=== PATIENT | male | born 1960 | race Caucasian/White ===

== ENCOUNTER → 2018-04-12 | Outpatient (CLI) | payer OTHER ==
[~2018-04-12] MED LIST: IOPAMIDOL (ISOVUE-M 200) 20 ML VIAL ONE; LIDOCAINE 1% 300 MG/30 ML SDV ONE
[2018-04-12 09:43] LABS: INR 0.96 (0.83-1.16)
== END ==
LOC: FIMAGING 08:41
PROVIDERS: ATTEND Orthopaedic Surgery Orthopaedic Surgery of the Spine
PROC: 3E0R3KZ Introduction of Other Diagnostic Substance into Spinal Canal, Percutaneous Approach (ICD-10-PCS; principal; 2018-04-12)
DX: T84.296A Other mechanical complication of internal fixation device of vertebrae, initial encounter (principal); M99.73 Connective tissue and disc stenosis of intervertebral foramina of lumbar region; M46.96 Unspecified inflammatory spondylopathy, lumbar region; Z98.1 Arthrodesis status
CPT/HCPCS: Q9966

== ENCOUNTER 2018-04-28 10:12 | Inpatient (IN) | payer OTHER ==
[2018-04-28] MEDS ORDERED: LR 1,000 ML IV ONE (10:24)
[2018-04-28] MEDS ORDERED: BUPIVACAINE/EPI 0.5% 30 ML SDV ONE (10:38)
[2018-04-28] MEDS ORDERED: BACITRACIN 50,000 UNITS/10 ML SYR IRR ONE ×2 (10:39→17:47)
[2018-04-28] MEDS ORDERED: VANCOMYCIN 1 GM VIAL ONE (10:39)
[2018-04-28] MEDS ORDERED: MIDAZOLAM 2 MG/2 ML VIAL IVP ONE (11:41)
--- NOTE | 2018-04-28 11:41 | PDANEPAE ---
ANE History of Present Illness T12 to pelvis fusion redo with instrumentation ANE Past Medical History - Cardiovascular History Hx Hypertension: Yes Hx Arrhythmias: No Hx Chest Pain: No Hx Coronary Artery / Peripheral Vascular Disease: No Hx CHF / Valvular Disease: No Hx Palpitations: No - Pulmonary History Hx COPD: No Hx Asthma/Reactive Airway Disease: No Hx Recent Upper Respiratory Infection: No Hx Oxygen in Use at Home: No Hx Sleep Apnea: Yes Sleep Apnea Screening Result - Last Documented: Positive Pulmonary History Comment: SLEEP APNEA POS W/CPAP - Neurologic History Hx Cerebrovascular Accident: No Hx Seizures: No Hx Dementia: No - Endocrine History Endocrine History Comment: HYPOTHYROID - Renal History Hx Renal Disorders: No - Liver History Hx Hepatic Disorders: No - Neurological & Psychiatric Hx Hx Neurological and Psychiatric Disorders: No - Cancer History Hx Cancer: No - Congenital Disorder History Hx Congenital Disorders: No - GI History Hx Gastrointestinal Disorders: No - Other Health History Other Health History: RHEUMATOID ARTHRITIS - Chronic Pain History Chronic Pain: Yes (BACK PAIN, LEG PAIN) - Surgical History Prior Surgeries: L KNEE SCOPE X3. L TKA. L SHOULDER SCOPE. CERVICAL SURG IMPINGEMENT. DISCECTOMY LUMBAR. SEPTOPLASTY. UMB HERNIA. SPINAL FUSION LUMBAR. ING HERNIA ANE Review of Systems Review of systems is: negative Review of Systems: No problems with neck extension, flexion - Exercise capacity METS (RN): 5 METS ANE Patient History - Allergies Allergies/Adverse Reactions: No Known Allergies Allergy (Unverified 04/05/18 14:00) - Home Medications Home medications: home medication list seen and reviewed Home Medications: Aspirin [Aspirin 325 mg (*)] 325 mg PO DAILY 04/05/18 [Last Taken 2 Weeks Ago ~ 04/14/18] Benazepril HCl [Lotensin (*)] 20 mg PO DAILY 04/05/18 [Last Taken 1 Week Ago ~] Diclofenac Sodium [Voltaren-XR] 100 mg PO DAILY 04/05/18 [Last Taken 2 Weeks Ago ~04/14/18] Hydroxychloroquine Sulfate [Plaquenil 200 mg (*)] 200 mg PO DAILY 04/05/18 [ Last Taken 2 Weeks Ago ~04/14/18] Levothyroxine [Synthroid 50 mcg (*)] 50 mcg PO DAILY 04/05/18 [Last Taken 07:00] Niacin (Inositol Niacinate) [Niacin Flush Free 750 mg Cap] 750 mg PO HS [Last Taken 2 Weeks Ago ~04/14/18] Testosterone Cypionate 200 mg IM MASON 04/05/18 [Last Taken 04/26/18] Valsartan/Hydrochlorothiazide [Diovan Hct 160-25 mg Tablet] 1 each PO DAILY 08/18 [Last Taken 04/27/18] Ascorbic Acid [Vitamin C 500 mg (*)] 500 mg PO DAILY 04/11/18 [Last Taken 2 Weeks Ago ~04/14/18] Atorvastatin Calcium 80 mg PO HS 04/11/18 [Last Taken 04/27/18] Cholecalciferol (Vitamin D3) [Vitamin D3] 5,000 unit PO DAILY 04/11/18 [Last Taken 2 Weeks Ago ~04/14/18] Folic Acid [Folic Acid 1 MG (*)] 1 mg PO DAILY 04/11/18 [Last Taken 2 Weeks Ago ~04/14/18] Gabapentin [Neurontin 300 MG (*)] 300 mg PO BID 04/11/18 [Last Taken Unknown] Herbals/Supplements -Info Only 1 ea PO DAILY 04/11/18 [Last Taken 1 Week Ago ~] Magnesium Oxide [Magnesium Oxide 400 mg (*)] 400 mg PO DAILY 04/11/18 [Last Taken Unknown] Methotrexate Sodium [Rheumatrex] 20 mg PO TH 04/11/18 [Last Taken 2 Weeks Ago ~ 04/14/18] Gabapentin [Neurontin 300 MG (*)] 300 mg PO TID 04/28/18 [Last Taken 04/28/18 07 :00] - NPO status NPO Since - Liquids (Date): 04/28/18 NPO Since - Liquids (Time): 09:00 NPO Since - Solids (Date): 04/27/18 NPO Since - Solids (Time): 23:15 - Anes Hx Anes Hx: no prior problems - Smoking Hx Smoking Status: Never smoked - Family Anes Hx Family Anes Hx: none Family Hx Anesthesia Complications: NEG ANE Labs/Vital Signs - Vital Signs Vital Signs: reviewed preoperatively; see RN documention for details Blood Pressure: 164/118 Heart Rate: 73 Respiratory Rate: 18 O2 Sat (%): 96 Height: 180.34 cm Weight: 97.522 kg ANE Physical Exam - Airway Neck exam: FROM Mallampati Score: Class 2 Mouth exam: normal dental/mouth exam - Pulmonary Pulmonary: no respiratory distress - Cardiovascular Cardiovascular: regular rate and rhythym - ASA Status ASA Status: III ANE Anesthesia Plan Anesthesia Plan: general endotracheal anesthesia Lines/Monitors: arterial line
[2018-04-28] MEDS ORDERED: CITRATE DEXTROSE SOLN 500 ML BAG ONE ×3 (12:09→16:55)
[2018-04-28] MEDS ORDERED: ceFAZolin 2 GM/DEXTROSE 100 ML IV ONE (12:12)
[2018-04-28] MEDS ORDERED: TRANEXAMIC ACID 1,000 MG in NS 100 ML IV ONE (12:12)
--- NOTE | 2018-04-28 12:14 | PDHPUP ---
History & Physical Update H&P update statement: This history and physical update is based on an assessment of the patient which was completed after admission or registration (within 24 hours), but prior to the surgery/procedure. H&P update: H&P reviewed & patient examined, no change in patient's condition since H&P completed
[2018-04-28] MEDS ORDERED: DEXAMETHASONE 4 MG/ML VIAL ONE (12:15)
[2018-04-28] MEDS ORDERED: PROPOFOL/EMULSION 500 MG/50 ML BOTTLE IV ONE ×3 (12:15→19:25)
[2018-04-28] MEDS ORDERED: REMIFENTANIL HCL 1 MG VIAL ONE ×3 (12:15→19:24)
[2018-04-28] MEDS ORDERED: ROCURONIUM 50 MG/5 ML VIAL ONE (12:15)
[2018-04-28] MEDS ORDERED: fentaNYL 100 MCG/2 ML INJ ONE ×2 (12:15→20:47)
[2018-04-28] MEDS ORDERED: ONDANSETRON 4 MG/2 ML VIAL ONE (12:15)
[2018-04-28] MEDS ORDERED: LIDOCAINE 2% 100 MG/5 ML SYR ONE (12:15)
[2018-04-28] MEDS ORDERED: HYDROmorphONE/DILAUDID 2 MG/ML INJ ONE ×2 (12:15→18:20)
[2018-04-28] MEDS ORDERED: PROPOFOL 200 MG/20 ML VIAL ONE (12:15)
--- NOTE | 2018-04-28 12:22 | PDGENHP ---
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
[2018-04-28] MEDS ORDERED: TRANEXAMIC ACID 1,000 MG/10 ML VIAL ONE ×2 (14:26→14:51)
[2018-04-28] MEDS ORDERED: DEXAMETHASONE 4 MG/ML VIAL IVP PRN (17:19)
[2018-04-28] MEDS ORDERED: PROMETHAZINE HCL 25 MG/ML INJ IVP PRN (17:19)
[2018-04-28] MEDS ORDERED: DIAZEPAM 5 MG/ML 1 ML SYR IVP PRN (17:19)
[2018-04-28] MEDS ORDERED: MEPERIDINE 25 MG/0.5 ML AMP IVP PRN (17:19)
[2018-04-28] MEDS ORDERED: HYDROmorphONE/DILAUDID 2 MG/ML INJ IVP PRN (17:19)
[2018-04-28] MEDS ORDERED: NALOXONE HCL 0.4 MG/ML INJ IVP PRN ×2 (17:19→21:33)
[2018-04-28] MEDS ORDERED: HYDROCODONE/APAP 5/325 TAB PO PRN (17:19)
[2018-04-28] MEDS ORDERED: oxyCODONE IR 5 MG TAB PO PRN (17:19)
[2018-04-28] MEDS ORDERED: ACETAMINOPHEN 500 MG TAB PO PRN (17:19)
[2018-04-28] MEDS ORDERED: ONDANSETRON 4 MG/2 ML VIAL IVP PRN ×2 (17:19→20:35)
[2018-04-28] MEDS ORDERED: LABETALOL HCL 5 MG/ML 20 ML MDV IVP PRN (17:19)
--- NOTE | 2018-04-28 17:21 | POSTANESTH ---
Post Anesthetic Evaluation Cardiovascular Status: Similar to Pre-Op Cond Respiratory Status: Similar to Pre-op Cond. Level of Consciousness/Mental Status: Can Participate in Eval, Mildly Sleepy, Arousable Pain Control: Adequate, Prn Tx Ordered Nausea/Vomiting Control: Adequate, Prn Tx Ordered Complications Possibly Related to Anesthesia: None Noted
[2018-04-28] MEDS ORDERED: LACTULOSE 20 GM/30 ML UDCUP PO PRN (20:35)
[2018-04-28] MEDS ORDERED: POLYETHYLENE GLYCOL 3350 17 GM PKT PO PRN (20:35)
[2018-04-28] MEDS ORDERED: BISACODYL 10 MG SUPP PR PRN (20:35)
[2018-04-28] MEDS ORDERED: diphenhydrAMINE 25 MG CAP PO PRN (20:35)
[2018-04-28] MEDS ORDERED: ONDANSETRON DISINTEGRATING 4 MG TAB PO PRN (20:35)
[2018-04-28] MEDS ORDERED: MAGNESIUM HYDROXIDE 30 ML UDCUP PO PRN (20:35)
[2018-04-28] MEDS ORDERED: LABETALOL HCL 5 MG/ML 20 ML MDV ONE (20:36)
[2018-04-28] MEDS: fentaNYL 100 MCG/2 ML INJ IVP PRN ×3 (20:48→21:45)
[2018-04-28] MEDS ORDERED: morphINE PCA 30 MG/30 ML PCA IV PRN (21:33)
--- NOTE | 2018-04-28 22:52 | SUROPNOTE ---
[facility] Operative Report - Surgery Date: 04/28/18 Pre-operative Diagnosis: L1-S1 pseudarthrosis, painful nonunion, failed instrumentation Post-operative Diagnosis: Same Procedure: L1-S1 removal of instrumentation Inspection of fusion mass T12-S2 fusion with instrumentation L2, L3 complete laminectomy Right L2/3 complete facetectomy and L3 transforaminal decompression Use of intra-operative fluoroscopy Use of intra-operative computer-aided navigation Use of intra-operative neuromonitoring, including EMG, MEP, and SSEP modalities Surgeon: Cm Saenz MD Assembler Bicycle: None Anesthesia: General endotracheal anesthesia Findings: As expected, loosened and failed instrumentation, multiple loosened caps, broken left L3 screw. Estimated Blood Loss: 900mL Drains: hemovac x 1 Specimens: instrumentation Complications: None Condition: Transferred to PACU in stable condition. Implants: None Indications: This patient has been diagnosed with symptomatic instrumentation and pseudarthrosis with spinal stenosis and left leg weakness. I have explained all options of treatment for the patient, and the patient has elected to proceed with operative management. I have explained all risks, benefits, and alternatives of the proposed procedure. The risks that we have discussed include , blindness, nerve damage, recurrent disc herniation, infection, dural tear, failure of surgery to alleviate pre-operative symptoms, instability , and possible need for further operation. In addition to the aforementioned procedure, I also discussed with the patient that other procedures may be indicated during the course of surgery. The patient expressed understanding of this. Pre-operative: The proposed incision site was marked in the pre-operative holding area by me. The patient was then taken to the operating room in stable condition. Following smooth induction of general anesthesia, the patient was positioned prone on a Mitul table with all down surfaces well-padded. The patient was then prepped and draped in the usual sterile fashion. Pre-operative antibiotics and tranexamic acid were administered within one hour of the incision. A surgical timeout was performed, and all parties involved in the procedure were in agreement on the correct patient, location, and procedure to be performed. Level identification: The proposed levels were identified using prior incisions the skin was marked for the proposed incision. A midline approach was taken from T12 to S2. Electrocautery was used to coagulate any bleeding vessels identified above the level of the fascia. Instrumentation was readily visible, and a spinal timeout confirmed the levels. Removal of instrumentation: Removal of instrumentation was then performed. The prior instrumentation was all removed. There were no signed of infx, and abx were then given. Of note, this process alone took about two hours to carefully remove broken instrumentation and ensure proper removal. Inspection of fusion mass: At this time, the fusion was inspected and noted to be unfused throughout the lumbar spine. Navigation: At this point, the patient was covered, and an intra-operative CT scan was performed. Computer-aided stereotactic navigation would be used throughout all of the instrumentation portion of the case. Pedicle screw placement: Using a freehand technique with fluoroscopic assistance, a standard entry point was selected based on bony landmarks. A pilot highway patrol hole was created with a high speed malini. The pedicle tract was then cannulated using a curved Lenke probe. A ball-tipped feeler was then passed through the cannulated tract to ensure that there was no breach on all sides: superior, inferior, medial, lateral, and ventral. A tap was then used up to a size that was 1mm below the final screw size based on pre-operative templating. A ball-tipped feeler was used again in a similar fashion to ensure a safe trajectory without breach. The tract length was then measured and recorded for future pedicle screw selection and placement. The pedicle tract jesus then injected with a small amount of microfibrillar collagen agent to ensure hemostasis. This sequence was performed for all levels that would be included in the fusion. An appropriately-sized screw was placed at each level and confirmed fluoroscopically. All screws were then stimulated. Each screw was stimulated and potentials were all above 20 milliAmps. This process was repeated in a similar fashion on the contralateral side. CT imaging: At this point, a second CT scan was performed to ensure that the proper placement of all screws. Decompression: All paraspinal muscles were dissected sub-periostally from the spinous processes and laminae. The dissection was then carried out to include the extent of decompression that was determined before surgery, with care being taken to preserve facet capsules that would not be included in the final fusion. The lateral pars was identified for all levels to be included in the proposed decompression. Using a combination of rongeur, malini, and Kerrison rongeurs, the spinous processes and laminae were removed at all levels to the subarticular lateral recess. Care was taken to leave a minimum of 8mm of bone from the lateral border of the pars at each decompressed level. The ligamentum flavum was resected at all levels. Using a Kerrison rongeur angled back, additional ligamentum flavum was removed from under the caudal aspect of the cephalad-most level, and from under the cephalad aspect of the caudal-most level. Additional care was taken to adequately decompress the lateral recess at all levels. At this time, a ball probe was used to probe all foraminae at the affected levels. Where necessary, a small Kerrison rongeur was used to decompress remaining bone and soft tissue so that all nerve roots would traverse freely through the foraminae. In total, the entirety of L2 and L3 were removed, The complete left L3 foramen was decompressed through a transforaminal approach through the L2/3 facet. Bone graft: All bony surfaces were decorticated using a high speed malini, including all facets to be fused. All local autograft bone was cleaned of soft tissue and morselized. All remaining allograft and autograft bone was placed in the facets being fused and lateral to the instrumentation in the posterolateral gutters. BMP, allograft, and autograft were used as planned in the posterolateral gutters. Alexandru and set screw placement: An appropriately-sized alexandru was then placed into the pedicle screw heads, with ample alexandru extending from either end. Set screws were then placed into all pedicle screws over the rods, and tensioned using a torque-limited screwdriver. Closure: The surgical field was then copiously irrigated with sterile saline. Vancomycin powder was then applied to the surgical field. #1 braided and absorbable interrupted sutures were used to repair the fascia. Then 2-0 interrupted sutures were used to repair the dermal layer, and a separate 3-0 monofilament suture was used to repair the subcutaneous layer in a running fashion. All sutures used were absorbable. Topical adhesive was then applied to the skin and allowed to dry. A sterile island dressing was applied over the surgical incision. A surgical count was performed before initiation of closure and following the procedure, and all were correct. I was present for the entire procedure. Neuromonitoring: SSEP, MEP and EMG were used throughout the case from incision until the beginning of closure. There were no significant changes throughout the case, and SSEP signals were at their pre-surgical baseline levels before surgical closure was initiated. Recovery: The patient was extubated uneventfully in the operating room. The patient was taken to the recovery room in stable condition. Sequential compression devices for VTE prophylaxis were applied to the patients lower extremities, and were ordered to be used while the patient was non-ambulatory. Chemical VTE prophylaxis was considered to be contraindicated for this patient because of the risk of bleeding near the epidural space. 22 modifier: This case took a total of over 7 hours to complete. The additional procedure to remove prior broken instrumentation added an additional 2 hours alone. The patients body habitus and BMI over 30 also increased the technical difficulty of perform this case safely. Cm Saenz MD
[2018-04-28] MEDS: METHOCARBAMOL 750 MG TAB PO PRN (23:00)
[2018-04-28] MEDS: ATORVASTATIN CALCIUM 40 MG TAB PO SCH (23:00)
[2018-04-28] MEDS: FAMOTIDINE 20 MG TAB PO SCH (23:01)
[2018-04-28] MEDS: oxyCODONE IR 5 MG TAB PO PRN (23:01)
[2018-04-28] MEDS: SENNOSIDES/DOCUSATE SODIUM TAB PO SCH (23:01)
[2018-04-28] MEDS: ACETAMINOPHEN 500 MG TAB PO SCH (23:01)
[2018-04-29] MEDS: oxyCODONE IR 5 MG TAB PO PRN ×5 (03:59→20:54)
[2018-04-29] MEDS: METHOCARBAMOL 750 MG TAB PO PRN ×3 (06:19→20:13)
[2018-04-29] MEDS: ACETAMINOPHEN 500 MG TAB PO SCH ×3 (06:19→22:12)
--- NOTE | 2018-04-29 08:15 | PDMN ---
Medical Necessity Medical necessity: Pt meets inpt criteria per MD order and [facility] [place] [facility] Lumbar Fusion, 3 days. 58 y/o w/symptomatic instrumentation and pseudoarthrosis w/ spinal stenosis and L leg weakness, admitted for spinal surg: L1-S1 removal of instrumentation, T12-S2 fusion w/instrumentation, L2/L3 complete lami, R L2/3 complete facetectomy and L3 transforaminal decompression, and post-op care.
[2018-04-29] MEDS: FAMOTIDINE 20 MG TAB PO SCH ×2 (08:36→20:14)
[2018-04-29] MEDS: SENNOSIDES/DOCUSATE SODIUM TAB PO SCH ×2 (08:36→20:13)
[2018-04-29] MEDS: LEVOTHYROXINE 50 MCG TAB PO SCH (08:36)
[2018-04-29] MEDS ORDERED: BENAZEPRIL HCL 20 MG TAB PO SCH (09:00)
[2018-04-29] MEDS ORDERED: VALSARTAN/HCTZ 80-12.5MG TAB PO SCH (09:00)
[2018-04-29] MEDS: HYDROCHLOROTHIAZIDE PO SCH (12:47)
[2018-04-29] MEDS: VALSARTAN PO SCH (12:47)
[2018-04-29] MEDS: BENAZEPRIL HCL 20 MG TAB PO SCH (12:49)
--- NOTE | 2018-04-29 14:28 | ASMTCMCOM ---
CM Note CM Note Notes: Pt had planned spinal surgery, resides with spouse. OT rec home, PT rec HHC. CM to follow pt progress and arrange HHC for pt if MD recommends it. Date Signed: 04/29/2018 02:27 PM Electronically Signed By:MARY Ayers
--- NOTE | 2018-04-29 17:14 | GPROG ---
I saw and evaluated the patient earlier this morning and have been in contact with his nurse loc boudreaux his care. Overall, he is doing quite well. His pain is actually controlled on an oral regimen brendan ne. He has not required IV pain medication. He has been up with physical therapy, but has been in c onsiderable pain, appropriate lumbar spine pain. He reports improvement of his right thigh symptoms but has some persistent left thigh symptoms. He has a little bit of left tibialis anterior weakness, but it is the same as when compared to before his operation. IMPRESSION: Postoperative day 1 status post T12 to pelvis revision decompression and fusion with ins trumentation. ASSESSMENT AND PLAN: Moving forward. The patient looks great. His vitals are fine. His pain is we ll controlled. I am fine to discharge him whenever he meets gross criteria. I will continue to see him on a daily basis. /[id number]/MODL
[2018-04-29] MEDS: ATORVASTATIN CALCIUM 40 MG TAB PO SCH (20:13)
[2018-04-30] MEDS: METHOCARBAMOL 750 MG TAB PO PRN ×3 (03:52→21:39)
[2018-04-30] MEDS: oxyCODONE IR 5 MG TAB PO PRN ×4 (03:52→18:26)
[2018-04-30] MEDS: ACETAMINOPHEN 500 MG TAB PO SCH ×3 (05:29→21:39)
[2018-04-30] MEDS: FAMOTIDINE 20 MG TAB PO SCH ×2 (08:15→21:39)
[2018-04-30] MEDS: SENNOSIDES/DOCUSATE SODIUM TAB PO SCH ×2 (08:15→21:39)
[2018-04-30] MEDS: LEVOTHYROXINE 50 MCG TAB PO SCH (08:15)
[2018-04-30] MEDS: VALSARTAN PO SCH (08:18)
[2018-04-30] MEDS: HYDROCHLOROTHIAZIDE PO SCH (08:18)
--- NOTE | 2018-04-30 09:42 | GPROG ---
I saw and evaluated the patient this morning during my morning rounds. Overall, he is doing quite we ll given the operation that he had. His pain is well controlled on an oral regimen. He has no unusu al symptoms. He does report good relief of bilateral thigh pain, more so on the right side, but he d oes have some improvement in the left thigh as well. He does have some pain in the lateral aspect of his calf. He has a little bit of left tibialis anterior and EHL weakness, but this is old. Drain i s in place and left in place. IMPRESSION: Postoperative day 2, status post T12 to pelvis revision, fusion and decompression with i nstrumentation. ASSESSMENT/PLAN: The patient had an over 7-hour surgery and is obviously doing quite well given how much he has been able to walk. Will get some x-rays later today. Will probably hold onto him until tomorrow and then consider discharge. Otherwise, all questions are answered at this time for the ermelinda lewis and his . Please do not hesitate to call me if any issues arise for this patient. Will anticipate letting him go home sometime tomorrow. /[id number]/MODL
[2018-04-30] MEDS: BENAZEPRIL HCL 20 MG TAB PO SCH (10:22)
--- NOTE | 2018-04-30 18:00 | GPROG ---
I have seen and evaluated the x-rays for the patient. They represent good instrumentation. There is some rotation and it is difficult to assess the T12 pedicle screws, but grossly everything appears t o be well positioned. /[id number]/MODL
[2018-04-30] MEDS ORDERED: BENAZEPRIL HCL 20 MG TAB PO SCH (21:00)
[2018-04-30] MEDS: ATORVASTATIN CALCIUM 40 MG TAB PO SCH (21:39)
[2018-05-01] MEDS: oxyCODONE IR 5 MG TAB PO PRN ×2 (00:17→10:19)
[2018-05-01] MEDS: METHOCARBAMOL 750 MG TAB PO PRN ×2 (05:31→08:37)
[2018-05-01] MEDS: ACETAMINOPHEN 500 MG TAB PO SCH (05:31)
[2018-05-01 07:44] VITALS: BP 136/73
--- NOTE | 2018-05-01 08:13 | GDS ---
The patient underwent an uneventful T12 to pelvis removal of instrumentation and decompression with r evision fusion on 04/28/2018. The surgery, itself, lasted over 7 hours and was quite involved, how er, was without complication. Following surgery, the patient progressed well with physical therapy. He was able to ambulate just f ine. Of note, cultures were sent during the operation, which were noted to be grossly negative. Cul tures were sent as there was some concern that the nonunion could have been infection related. I angelica l follow these as the patient is discharged. As he goes home, the patient is not to bend, lift, or twist about the spine and is to use the back br yfn whenever he is up for any prolonged period of time. Of note, we did use brad on the incision, so I have asked the patient not to shower for a couple of weeks and he will not bathe for a total of 6 weeks. He has been prescribed narcotic pain medicine, as well as a muscle relaxer, these prescrip tions he has at home already. The patient has my cell phone and is welcome to call me if any issues arise, otherwise I will plan to see the patient back in 2 weeks' time in my office. /[id number]/MODL
--- NOTE | 2018-05-01 08:13 | GPROG ---
DATE OF SERVICE: 05/01/2018 Patient offers no unusual complaints this morning. He notes that his thighs feel markedly better yisel n they did before the operation. Of note, he does state that his penis was numb before any of his op erations and that sensation is still absent, but otherwise, he is doing quite well. He has done giorgi ral laps with physical therapy. X-rays were taken yesterday, which were reviewed by me. PHYSICAL EXAMINATION: His dressing is somewhat saturated, but really seems to be related to his swea ting more than anything else. He has no gross sensory, motor, or vascular deficits, and again, his t highs seem to be much more sensate today. IMAGING: Reviewed, includes x-rays, which demonstrate well-positioned instrumentation. There is a l ittle better rotation., so it is difficult to assess the T12 pedicle screws, but overall they do appe ar to be well positioned. He does have a persistent end-cap at the top of his instrumentation, which is going to be fine left there, and he does have a persistent S1 screw, which proved difficult to re move during the operation. IMPRESSION: Postoperative day 3 status post T12 to pelvis removal of instrumentation, revision fusio n, and revision decompression. ASSESSMENT/PLAN: The patient has done extremely well from this operation. He is only on oral pain m edication at this point and has walked quite well despite the large operation. He shows no signs of requiring lab values or transfusion at this point. We will let the patient go home today. We will change his dressings and we will remove his drain. Enzo mukherjee will follow up with me in the office in 2 weeks' time from his surgery. /[id number]/MODL
[2018-05-01] MEDS: SENNOSIDES/DOCUSATE SODIUM TAB PO SCH (08:37)
[2018-05-01] MEDS: LEVOTHYROXINE 50 MCG TAB PO SCH (08:37)
[2018-05-01] MEDS: FAMOTIDINE 20 MG TAB PO SCH (08:37)
[2018-05-01] MEDS: HYDROCHLOROTHIAZIDE PO SCH (08:38)
[2018-05-01] MEDS: VALSARTAN PO SCH (08:38)
--- NOTE | 2018-05-01 12:25 | ASMTLACE ---
STEPHEN Length of stay for Answers: 3 days current admission Acuity / Level of Answers: Yes Care: Did the patient have an inpatient admission? # of Emergency department Answers: 0 visits in the last 6 months Score: 6 Date Signed: 05/01/2018 12:25 PM Electronically Signed By:Nimco Redding RN
--- NOTE | 2018-05-01 12:27 | ASMTDCNOTE ---
Case Management Discharge Discharge Order Complete? Answers: Yes Patient to Obtain Answers: via Family Medications Transportation Arranged Answers: Family/Friends Case Management Transport Answers: No Form Complete Family Notified Answers: Yes Discharge Comments Notes: Medically cleared for discharge to home with outpatient therapy. Date Signed: 05/01/2018 12:26 PM Electronically Signed By:Nimco Redding RN
== END 2018-05-01 12:22 | disposition home or self-care (01) | DRG 454 ==
LOC: F3N 10:12
PROVIDERS: ADMIT Orthopaedic Surgery Orthopaedic Surgery of the Spine; ATTEND Orthopaedic Surgery Orthopaedic Surgery of the Spine
DX: M96.0 Pseudarthrosis after fusion or arthrodesis (principal); T84.84XA Pain due to internal orthopedic prosthetic devices, implants and grafts, initial encounter; T84.038A Mechanical loosening of other internal prosthetic joint, initial encounter; I10 Essential (primary) hypertension; G47.30 Sleep apnea, unspecified; E03.9 Hypothyroidism, unspecified; M06.9 Rheumatoid arthritis, unspecified
CPT/HCPCS: 97110-GP; 97116-GP; 97161-GP; 97165-GO; 97530-GO; 97530-GP; 97535-GO; C1713; J0690; J1100; J1170; J2001; J2250; J2270; J2405; J2704; J3010; J3370

== ENCOUNTER 2018-05-08 08:26 | Inpatient (IN) | payer OTHER ==
--- NOTE | 2018-05-08 08:32 | EDPHY ---
ED Progress Note Narrative: Patient was sent to the ED for direct admission to the OR. He was not evaluated by the emergency room physician.
[2018-05-08] MEDS ORDERED: CEFAZOLIN 2 GM/DEXTROSE/100 ML BAG IV ONE (11:01)
[2018-05-08] MEDS ORDERED: BUPIVACAINE/EPI 0.5% 30 ML SDV ONE (11:02)
[2018-05-08] MEDS ORDERED: VANCOMYCIN 1 GM VIAL ONE (11:02)
[2018-05-08] MEDS ORDERED: BACITRACIN 50,000 UNITS/10 ML SYR IRR ONE (11:03)
--- NOTE | 2018-05-08 11:33 | GHP ---
DATE OF ADMISSION: 05/08/2018 HISTORY OF PRESENT ILLNESS: The patient is a very pleasant 58-year-old gentleman who underwent a wyatt or lumbar fusion, which was noted to fail with pseudarthrosis of multiple levels. About 1 week ago, he underwent a revision fusion and decompression, which at that time was without complication. Over the last couple of days, he has noticed some increasing drainage in the lumbar spine. He has not had any fevers or chills. PHYSICAL EXAMINATION: There is drainage from the lumbar spine incision. There appears to be a small fissure in the middle of the incision. ASSESSMENT/PLAN: I have talked to the patient about what to do next. I recommended an irrigation an d debridement at least to the fascia and probably below. We will remove the brad, wash it out, an d we will apply antibiotics will use iodine to replicate any infection. While there, will also take some cultures to tailor the antibiotics appropriately. We will also do a revision wound closure, jordan autumn a deep drain, and use an incisional VAC over the incision. Patient expressed understanding. We will admit him to the hospital and undergo the procedure later today. /[id number]/MODL
--- NOTE | 2018-05-08 11:57 | PDANEPAE ---
ANE Past Medical History - Cardiovascular History Hx Hypertension: Yes Hx Arrhythmias: No Hx Chest Pain: No Hx Coronary Artery / Peripheral Vascular Disease: No Hx CHF / Valvular Disease: No Hx Palpitations: No - Pulmonary History Hx COPD: No Hx Asthma/Reactive Airway Disease: No Hx Recent Upper Respiratory Infection: No Hx Oxygen in Use at Home: No Hx Sleep Apnea: Yes Pulmonary History Comment: SLEEP APNEA POS W/CPAP - Neurologic History Hx Cerebrovascular Accident: No Hx Seizures: No Hx Dementia: No - Endocrine History Endocrine History Comment: HYPOTHYROID - Renal History Hx Renal Disorders: No - Liver History Hx Hepatic Disorders: No - Neurological & Psychiatric Hx Hx Neurological and Psychiatric Disorders: No - Cancer History Hx Cancer: No - Congenital Disorder History Hx Congenital Disorders: No - GI History Hx Gastrointestinal Disorders: No - Other Health History Other Health History: RHEUMATOID ARTHRITIS - Chronic Pain History Chronic Pain: Yes (BACK PAIN, LEG PAIN) - Surgical History Prior Surgeries: L KNEE SCOPE X3. L TKA. L SHOULDER SCOPE. CERVICAL SURG IMPINGEMENT. DISCECTOMY LUMBAR. SEPTOPLASTY. UMB HERNIA. SPINAL FUSION LUMBAR. ING HERNIA ANE Review of Systems Review of Systems: ANE Patient History - Allergies Allergies/Adverse Reactions: No Known Allergies Allergy (Verified 05/08/18 08:26) - Home Medications Home Medications: Aspirin [Aspirin 325 mg (*)] 325 mg PO DAILY 04/05/18 [Last Taken 2 Weeks Ago ~ 04/14/18] Benazepril HCl [Lotensin (*)] 20 mg PO DAILY 04/05/18 [Last Taken 1 Week Ago ~] Levothyroxine [Synthroid 50 mcg (*)] 50 mcg PO DAILY 04/05/18 [Last Taken 07:00] Ascorbic Acid [Vitamin C 500 mg (*)] 500 mg PO DAILY 04/11/18 [Last Taken 2 Weeks Ago ~04/14/18] Atorvastatin Calcium 80 mg PO HS 04/11/18 [Last Taken 04/27/18] Cholecalciferol (Vitamin D3) [Vitamin D3] 5,000 unit PO DAILY 04/11/18 [Last Taken 2 Weeks Ago ~04/14/18] Folic Acid [Folic Acid 1 MG (*)] 1 mg PO DAILY 04/11/18 [Last Taken 2 Weeks Ago ~04/14/18] Valsartan/Hydrochlorothiazide [Valsartan-Hctz 160-12.5 mg Tab] 1 tab PO DAILY [Last Taken Unknown] - NPO status NPO Since - Liquids (Date): 05/07/18 NPO Since - Liquids (Time): 23:30 NPO Since - Solids (Date): 05/07/18 NPO Since - Solids (Time): 23:30 - Smoking Hx Smoking Status: Never smoked - Family Anes Hx Family Hx Anesthesia Complications: NEG ANE Labs/Vital Signs - Vital Signs Blood Pressure: 128/70 Heart Rate: 74 Respiratory Rate: 12 O2 Sat (%): 93 Height: 180.34 cm Weight: 94.801 kg ANE Physical Exam - Airway Mallampati Score: Class 2 - ASA Status ASA Status: II, E ANE Anesthesia Plan Anesthesia Plan: general endotracheal anesthesia
[2018-05-08] MEDS ORDERED: MIDAZOLAM 2 MG/2 ML VIAL ONE (12:08)
[2018-05-08] MEDS ORDERED: ONDANSETRON 4 MG/2 ML VIAL ONE (12:11)
[2018-05-08] MEDS ORDERED: ROCURONIUM 50 MG/5 ML VIAL ONE (12:11)
[2018-05-08] MEDS ORDERED: fentaNYL 100 MCG/2 ML INJ ONE ×4 (12:11→14:44)
[2018-05-08] MEDS ORDERED: PROPOFOL 200 MG/20 ML VIAL ONE (12:11)
[2018-05-08] MEDS ORDERED: METOCLOPRAMIDE 10 MG/2 ML VIAL ONE (12:11)
[2018-05-08] MEDS: fentaNYL 100 MCG/2 ML INJ IVP PRN ×2 (14:00→15:01)
[2018-05-08] MEDS ORDERED: POLYETHYLENE GLYCOL 3350 17 GM PKT PO PRN (14:15)
[2018-05-08] MEDS ORDERED: ceFAZolin 2 GM/DEXTROSE 100 ML IV ONE (14:16)
[2018-05-08] MEDS ORDERED: ONDANSETRON 4 MG/2 ML VIAL IVP PRN (14:16)
[2018-05-08] MEDS ORDERED: LR 500 ML IV PRN (14:16)
[2018-05-08] MEDS ORDERED: NALOXONE HCL 0.4 MG/ML INJ IVP PRN (14:16)
[2018-05-08] MEDS ORDERED: PROMETHAZINE HCL 25 MG/ML INJ IVP PRN (14:16)
[2018-05-08] MEDS ORDERED: MEPERIDINE 25 MG/0.5 ML AMP IVP PRN (14:16)
[2018-05-08] MEDS ORDERED: MAGNESIUM HYDROXIDE 30 ML UDCUP PO PRN (14:17)
[2018-05-08] MEDS ORDERED: BISACODYL 10 MG SUPP PR PRN (14:17)
--- NOTE | 2018-05-08 14:17 | POSTANESTH ---
Post Anesthetic Evaluation Cardiovascular Status: Normal, Stable Respiratory Status: Normal, Stable Level of Consciousness/Mental Status: Can Participate in Eval Pain Control: Adequate, Prn Tx Ordered Nausea/Vomiting Control: Adequate, Prn Tx Ordered Complications Possibly Related to Anesthesia: None Noted
[2018-05-08] MEDS: HYDROCODONE/APAP 5/325 TAB PO PRN ×2 (16:44→21:25)
--- NOTE | 2018-05-08 17:55 | SUROPNOTE ---
[facility] Operative Report - Surgery Date: 05/08/18 Pre-operative Diagnosis: Thoraco-Lumbar Spine Infection Post-operative Diagnosis: Same Procedure: Irrigation and debridement of thoracic and lumbar spines Application of non-durable negative pressure incisional vacuum device Surgeon: Cm Saenz MD Heel Trimmer: None Anesthesia: General endotracheal anesthesia Findings: As expected lumbar spinal stenosis Estimated Blood Loss: 100mL Drains: Hemovac (one deep, one superficial), negative pressure incisional vacuum device Specimens: Wound cultures (2 superficial, 2 deep) Complications: None Condition: Transferred to PACU in stable condition. Implants: None Indications: This patient was seen and examined by me and diagnosed with lumbar spine drainage following a prior spine surgery (revision [id number] on 04/28/18 with negative cultures). I have explained all options of treatment for the patient, and the patient has elected to proceed with operative management. I have explained all risks, benefits, and alternatives of the proposed procedure. The risks that we have discussed include , blindness, nerve damage, recurrent infection, dural tear, failure of surgery to alleviate pre-operative symptoms, and possible need for further operation. In addition to the aforementioned procedure, I discussed with the patient that other procedures may be indicated during the course of surgery that would be considered in the patients best interest. The patient expressed understanding of this. Pre-operative: The proposed incision site was marked in the pre-operative holding area by me. The patient was then taken to the operating room in stable condition. Following smooth induction of general anesthesia, the patient was positioned prone on a Mitul table in mild reverse Trendelenburg with all down surfaces well-padded. The patient was then prepped and draped in the usual sterile fashion. Pre- operative antibiotics were administered within one hour of the incision. A surgical timeout was performed, and all parties involved in the procedure were in agreement on the correct patient, location, and procedure to be performed. Approach: The prior incision was opened up. The skin was then incised sharply through the dermis. Electrocautery was used to dissect the subdermal fat layer down to fascia and to coagulate bleeding vessels. There was a moderate amount of serous fluid present here. Irrigation and Debridement: At this time, 3 L of saline was used to debride the thoracic and lumbar spines and any bits of tissue that were noted were scraped out. Curettes were scraped on all surfaces here as well. At this time, Betadine was placed into the surgical wound itself and left to sit there for approximately 4 minutes. This was then irrigated out with 3 additional L of saline impregnated with antibiotic. Approach (continued): At this point, the fascia was opened and a large (~200 mL) amount of thin red serous liquid was encountered. The entire fascia was then opened up to expose the entirety of the thoracolumbar spine. Irrigation and Debridement: At this time, 3 L of saline was used to debride the thoracic and lumbar spine below the fascia and any bits of tissue that were noted were scraped out. Curettes were scraped on all surfaces here as well. At this time, Betadine was placed into the surgical wound itself and left to sit there for approximately 4 minutes. This was then irrigated out with 3 additional L of saline impregnated with antibiotic. Closure: The surgical field was then copiously irrigated with sterile saline. Vancomycin powder was then applied to the surgical field. A small drain was placed deep to the fascia and brought out of the skin superior and laterally. The drain was then sewn to skin. #1 braided and absorbable interrupted sutures were used to repair the fascia. Then 2-0 monofilament interrupted sutures were used to repair the dermal layer, and a separate 2-0 nylon suture was used to repair the skin layer in a running fashion. All sutures used were absorbable (except nylon) . Mastisol was then applied and a non-durable negative pressure incisional vacuum device was then applied to the skin, and the negative pressure was noted to hold without leak. A surgical count was performed before initiation of closure and following the procedure, and all were correct. I was present for all critical portions of the procedure. Neuromonitoring: SSEP, MEP and EMG were used throughout the case from incision until the beginning of closure. There were no significant changes throughout the case, and SSEP signals were at their pre-surgical baseline levels before surgical closure was initiated. Recovery: The patient was extubated uneventfully in the operating room. The patient was taken to the recovery room in stable condition. Sequential compression devices for VTE prophylaxis were applied to the patients lower extremities, and were ordered to be used while the patient was non-ambulatory. Chemical VTE prophylaxis was considered to be contraindicated for this patient because of the risk of bleeding near the epidural space. Mahamed Saenz MD
[2018-05-08] MEDS: SENNOSIDES/DOCUSATE SODIUM TAB PO SCH (21:25)
[2018-05-08] MEDS: ATORVASTATIN CALCIUM 40 MG TAB PO SCH (21:25)
[2018-05-08] MEDS: FAMOTIDINE 20 MG TAB PO SCH (21:26)
[2018-05-09] MEDS: HYDROCODONE/APAP 5/325 TAB PO PRN ×5 (01:32→18:59)
[2018-05-09 05:02] LABS: PLATELET COUNT 561 10^3/uL (150-400)
[2018-05-09] MEDS ORDERED: ceFAZolin 2 GM/DEXTROSE 100 ML IV SCH (08:00)
[2018-05-09] MEDS: SENNOSIDES/DOCUSATE SODIUM TAB PO SCH ×2 (08:59→20:31)
[2018-05-09] MEDS: BENAZEPRIL HCL 20 MG TAB PO SCH (09:00)
[2018-05-09] MEDS: FAMOTIDINE 20 MG TAB PO SCH ×2 (09:00→20:31)
[2018-05-09] MEDS: VALSARTAN/HCTZ 80-12.5MG TAB PO SCH (09:00)
[2018-05-09] MEDS: VALSARTAN 80 MG TAB PO SCH (09:01)
--- NOTE | 2018-05-09 09:41 | PDMN ---
Medical Necessity Medical necessity: MCG: GRG Musculoskeletal sgy: [id number] 3 days : I/D , open , of deep abscess -- OP: I/D thoracic and lumbar spine, with one deep drain and one superficial, and wound vac placed- pt is S/P lumbar fusion revisions with drainage seen from site.
--- NOTE | 2018-05-09 09:55 | ASMTCMCOM ---
CM Note CM Note Notes: Patient is POD #1 I&D and wound vac placement of an infected spinal surgical site. On 04/28, he underwent an instrumentation removal as well as repair and revision of a prior lumbar fusion/decompression. He lives with his . If he needs a home wound vac, CM will arrange. PT to begin 6 weeks post-op. Date Signed: 05/09/2018 09:54 AM Electronically Signed By:Greta Jacob RN
--- NOTE | 2018-05-09 09:59 | GCON ---
DATE OF CONSULTATION: 05/09/2018 REFERRING PHYSICIAN: Cm Saenz MD REASON FOR EVALUATION: Possible hernia. HISTORY OF PRESENT ILLNESS: 58-year-old healthy male, status post remote anterior L5-S1 fusion, as well as L1 to L5 fusions. His postoperative course at that time was complicated by a ventral hernia through his anterior retroperitoneal incision. This was repaired with mesh. He was admitted on April 28 for L1 to S1 pseudoarthrosis, for which he underwent posterior hardware removal and T12 to S2 fusions. Immediately after surgery, he noticed a right lower quadrant flank bulge with associated discomfort when log rolling on that side. He was readmitted for a wound infection and washout. He denied groin pain. He denies nausea or vomiting. He had not noticed the asymmetry previously. He denied issues with his prior left abdominal hernia site repair. PAST MEDICAL HISTORY: Lumbar degenerative joint disease, sleep apnea (CPAP), hypothyroidism, and rheumatoid arthritis. PAST SURGICAL HISTORY: Laparoscopic bilateral inguinal hernia repair, anterior L5-S1 fusion, anterior L1 to S1 fusion, ventral hernia repair, left knee arthroscopy x3, left total knee arthroplasty, left shoulder arthroscopy, septoplasty. HOME MEDICATIONS: Aspirin, benazepril, levothyroxine, vitamin C, atorvastatin, cholecalciferol, folate, valsartan/hydrochlorothiazide. ALLERGIES: No known drug allergies. SOCIAL HISTORY: No alcohol, no tobacco. He is a retired [employer] for [employer]. PHYSICAL EXAM: VITAL SIGNS: Temperature 36.6, blood pressure 135/77, pulse 84 , respirations 17. GENERAL: The patient is up in chair, alert, appropriate, comfortable. EYES: Anicteric. NECK: No cervical lymphadenopathy. HEART: Regular. LUNGS: Clear. ABDOMEN: Soft. Well-healed low Pfannenstiel incision , as well as left mid abdominal retroperitoneal spinal approach incision without hernias. Notable right mid abdominal bulge, without discreet hernial defect, solid bilateral groins. Normal bilateral testicles and cords. Normal abdominal wall skin. BACK: Dressing intact, with bilateral drain tubes arising with serosanguineous drainage. EXTREMITIES: Normal bilateral lower extremities. IMPRESSION: Right side abdominal eventration, status post spinal manipulation, without clinical evidence of hernia. These findings are consistent with recent spinal instrumentation and peripheral denervation. We discussed the potential natural history with possible improvement with continued spinal recovery and physical therapy or continued persistence as a flank bulge. No surgical intervention is warranted at this time. Followup information was provided for further postoperative reassessment if discomfort continues to progress. All patient's and 's questions were entertained. Care plan was reviewed with Dr. Saenz. /[id number]/MODL MTDJd
--- NOTE | 2018-05-09 10:09 | GPROG ---
I have seen and evaluated the patient this morning. PHYSICAL EXAM: He looks great. I have consulted Infectious Disease, as well as General Surgery rega rding his intraoperative findings, as well as his possible lower right quadrant hernia. On physical exam, he has no sensory, motor, or vascular deficits. The drains are both in place and all have good suction. IMPRESSION: Postoperative day 1, status post lumbar and thoracic spine irrigation and debridement. ASSESSMENT AND PLAN: At this point, I have reviewed the Gram stains. One out of the 4 cultures demo nstrates gram-negative rods. The patient is on Ancef q.8 hours. We will tailor those antibiotics ac cordingly after the infectious disease specialist is able to see the patient. All questions were ans wered at this time. If there are any further questions, please do not hesitate to contact me andrea saleh /[id number]/MODL
[2018-05-09] MEDS: LEVOTHYROXINE 50 MCG TAB PO SCH (10:21)
[2018-05-09] MEDS: CEFEPIME HCL 2 GM in NS 100 ML IV SCH ×2 (13:52→22:10)
--- NOTE | 2018-05-09 14:22 | GCON ---
INFECTIOUS DISEASES CONSULTATION DATE OF CONSULTATION: 05/09/2018 REFERRING PHYSICIAN: Cm Saenz MD REASON FOR CONSULTATION: Postoperative back infection. HISTORY OF PRESENT ILLNESS: The patient is a 58-year-old male with a past medical history of rheumat oid arthritis, on methotrexate and Plaquenil, whom I am asked to see in consultation for a postoperat daniel back infection. The patient originally had lumbar fusion performed approximately 1 year ago for back pain and radicular symptomatology. The patient ultimately did not achieve fusion and had fractu re of hardware. He was taken back to the operating room on 04/28/2018, for revision of initial lumba r fusion. Cultures were obtained during that procedure, which showed no growth. The patient underwe nt T12-S2 fusion with removal of old hardware. The patient notes postoperatively he was doing well, with some residual thigh numbness. Several days ago, he developed onset of serous drainage from his lower incision. He does not recall any surrounding erythema. He did not note any odor. He did not have fever, chills or night sweats. Based on the persistent drainage, he was taken to the operating room yesterday for incision and drainage. Operatively, he was noted to have serous fluid noted, incl uding approximately 200 mL of thin, red serous fluid noted below the fascia. Vancomycin powder was a pplied. Four culture specimens were obtained, and one of the deep specimens showed gram-negative aroldo s on Gram stain. Cultures are all currently pending. The patient has been receiving cefazolin empir ically. He has not had any recent urinary symptoms. He currently notes that he has postoperative ba ck pain. Given the above findings, I am now asked to assist in his ongoing management. PAST MEDICAL HISTORY: Rheumatoid arthritis, degenerative joint disease, hypothyroidism. PAST SURGICAL HISTORY: Bilateral inguinal hernia repair, prior L1-S1 fusion as outlined above, ventr al hernia repair, multiple knee arthroscopies, left total knee arthroplasty, left shoulder arthroscop y, septoplasty. CURRENT MEDICATIONS: Cefazolin 2 g IV q.8 hours, valsartan 80 mg p.o. daily, morphine as needed for pain, Synthroid 50 mcg p.o. daily, hydrochlorothiazide/valsartan 1 p.o. daily, Pepcid 20 mg p.o. b.i. d., Lotensin 20 mg p.o. daily, Lipitor 80 mg p.o. q.h.s. ALLERGIES: No known drug allergies. SOCIAL HISTORY: Patient does not smoke. He drinks 2 alcoholic beverages daily. Pet dog at home. FAMILY HISTORY: Stroke, congestive heart failure. REVIEW OF SYSTEMS: Outside that noted in the HPI, the remainder of 10-system review is unremarkable. PHYSICAL EXAMINATION: VITAL SIGNS: Temperature 36.6, heart rate 90, respiratory rate 20, blood pres sure 103/79, oxygen saturation 94% on room air. GENERAL: Patient is an obese male, in no acute dist ress. He appears nontoxic. HEENT: There is no scleral icterus, conjunctival injection, or conjunct ival petechiae. Oropharynx shows moist mucous membranes with no thrush. Dentition in good repair. There is no nasal discharge. There is no sinus tenderness. NECK: Supple, without palpable lymphade nopathy or thyromegaly. CHEST: Clear to auscultation bilaterally, without adventitious sounds. The respiratory effort is normal. CARDIOVASCULAR: Regular rate and rhythm, without murmurs, gallops, o r rubs. ABDOMEN: Obese, nontender, nondistended. MUSCULOSKELETAL: No cyanosis, clubbing, or edema . BACK: Incisional wound VAC is in place. No surrounding erythema noted. NEUROLOGIC: Patient is alert and interacts appropriately with examiner. Cranial nerves 2-12 are grossly intact. Sensation is grossly intact. Muscle tone and bulk are normal. LYMPHATICS: No cervical or supraclavicular nod es. LABORATORY DATA: White blood cell count 15.5, hematocrit 38.6, platelets 561, neutrophils 82%. Seru m creatinine 1.2. Four specimens obtained operatively with the specimen labeled "deep lumbar #2," owing 3+ white blood cells with 1+ gram-negative rods; the remaining Gram stains are all negative, ot her than presence of white blood cells. Cultures are currently pending; cultures from 04/28/2018, owed no growth. IMPRESSION: 1. Postoperative back infection: The patient is now status post incision and drainage with 1 Gram s tain showing presence of gram-negative rods. Based on this finding, will transition from cefazolin t o cefepime pending additional culture data. The patient will require 8-week course of IV equivalent antibiotic therapy. Prior to placement of PICC line, will await further identification susceptibilit y testing as if this isolate is susceptible to fluoroquinolones. This may provide an oral alternativ e given its excellent oral bioavailability. Discussed with patient that there is potential he would require IV antibiotic therapy dependent on identification and susceptibility, which would necessitate PICC line at that point in time. Given the indwelling hardware, will require suppressive oral antib iotic therapy thereafter. RECOMMENDATIONS: 1. Cefepime 2 g IV q.8 hours. 2. Discontinue cefazolin. 3. Await culture and susceptibility of gram-negative aroldo. 4. Hold off on PICC line placement pending identification and susceptibility of gram-negative aroldo. 5. Thank you for this consultation. We will continue to follow the patient with you. /[id number]/MODL
[2018-05-09] MEDS ORDERED: ACETAMINOPHEN 325 MG TAB PO PRN (17:04)
[2018-05-09] MEDS: ATORVASTATIN CALCIUM 40 MG TAB PO SCH (20:31)
[2018-05-10] MEDS: CEFEPIME HCL 2 GM in NS 100 ML IV SCH ×3 (05:30→22:27)
[2018-05-10] MEDS: LEVOTHYROXINE 50 MCG TAB PO SCH (05:35)
[2018-05-10] MEDS: SENNOSIDES/DOCUSATE SODIUM TAB PO SCH ×2 (09:40→22:27)
[2018-05-10] MEDS: VALSARTAN/HCTZ 80-12.5MG TAB PO SCH (09:41)
[2018-05-10] MEDS: BENAZEPRIL HCL 20 MG TAB PO SCH (09:41)
[2018-05-10] MEDS: VALSARTAN 80 MG TAB PO SCH (09:41)
[2018-05-10] MEDS: FAMOTIDINE 20 MG TAB PO SCH ×2 (09:42→22:26)
--- NOTE | 2018-05-10 09:57 | GPROG ---
DATE OF SERVICE: 05/10/2018 I have seen and evaluated the this morning. I have also discussed this plan of care with the nursing staff as well as Dr. Jones and reviewed all notes from Dr. Kraft. PHYSICAL EXAM: The drains appear to be working well. He has no sensory, motor, or vascular deficits . Cultures reviewed are still pending growth. At this point, there is 1/4 that is positive for gram-ne gative rods. IMPRESSION: Postoperative day status post thoracolumbar spine irrigation and debridement. ASSESSMENT AND PLAN: The patient has been switched to cefepime from cefazolin per the infectious dis ease recommendation. I will defer all antibiotic management to Dr. Kraft at this point. The patient may need a PICC line for long-term IV administration or an oral regimen may be appropriate. Again, I will leave this decision up to Dr. Kraft. At this point, the patient is simply waiting for antibioti c management. From my perspective, he meets all criteria for discharge from an orthopedic perspectiv e. I will follow the patient and at this point we will maintain him as an inpatient today and wait f or further recommendations from Dr. Kraft. /[id number]/MODL
--- NOTE | 2018-05-10 12:14 | PCMIDPN ---
Assessment/Plan: Post op infection following re-do for loosing HWR, who underwent removal HWR L1 -S1, T12-S2 fusion with instrumentation, L2, L3 laminectomy, Right L2/3 facetectomy and L3 transforaminal decompression 04/28/18. Significant drainage post op developed and underwent washout 05/08/18 for concern for infection. --hold off on PICC Line to await culture maturity --follow cultures --continue cefepime for now --add on CRP and LFTs --recheck CBC in AM with initial elevation in WBC meds cefepime 2gm IV q8h, #1 Microbiology 04/28/18 14:10 Back - Cx: gram stain neg; CX NGTD 04/28/18 14:10 Back - CX: Gram stain neg; Cx NGTD 05/08/18 12:40 Back - 2 deep cx : 1 showed GNR on gram stain: Cx NGTD 05/08/18 12:40 Back - 2 superficial: gram stain neg; NGTD Subjective: no back pain feeling well noted low grade temp overnight Objective: Vital Signs Temp Pulse Resp BP Pulse Ox 36.8 C 84 13 135/79 H 97 05/10/18 07:48 05/10/18 07:48 05/10/18 07:48 05/10/18 09:41 05/10/18 07:48 Microbiology 05/08/18 12:40 Gram Stain - Final Back - Eswab 05/08/18 12:40 Gram Stain - Final Back - Eswab 05/08/18 12:40 Gram Stain - Final Back - Eswab 05/08/18 12:40 Gram Stain - Final Back - Eswab Laboratory Results 05/09/18 04:24 05/09/18 04:24 05/09/18 05/10/18 05/11/18 05:59 05:59 05:59 Intake Total 2390 3200 Output Total 870 2540 Balance 1520 660 - Physical Exam General Appearance: alert, no apparent distress, non-toxic EENT: No thrush Respiratory: lungs clear, No accessory muscle use Cardiac/Chest: regular rate, rhythm, No systolic murmur Extremities: No pedal edema Male Genitalia: No mock Back: other (back incision w 2 drains, mostly blood in drain; incision vac in place) Skin: No rash Neuro/Psych: alert, normal mood/affect, oriented x 3 - Time Spent With Patient Time Spent with Patient: greater than 35 minutes Time Spent with Patient: Greater than 35 minutes spent on this patients care, greater than 50% of time spent counseling, educating, and coordinating care regarding the above mentioned plan. ICD10 Worksheet Patient Problems: Problems Problem Status Onset Post op infection Acute - ICD10 Problem Qualifiers (1) Post op infection Qualifiers: Encounter type: subsequent encounter Postoperative infection type: unspecified type Qualified Code(s): T81.40XD - Infection following a procedure , unspecified, subsequent encounter
[2018-05-10] MEDS: HYDROCODONE/APAP 5/325 TAB PO PRN (14:04)
[2018-05-10] MEDS: METHOCARBAMOL 750 MG TAB PO SCH ×2 (16:16→22:26)
[2018-05-10] MEDS: GABAPENTIN 300 MG CAP PO SCH (18:22)
[2018-05-10] MEDS: ATORVASTATIN CALCIUM 40 MG TAB PO SCH (22:26)
[2018-05-11 05:21] LABS: PLATELET COUNT 584 10^3/uL (150-400)
[2018-05-11] MEDS: LEVOTHYROXINE 50 MCG TAB PO SCH (05:43)
[2018-05-11] MEDS: CEFEPIME HCL 2 GM in NS 100 ML IV SCH ×2 (05:43→15:20)
[2018-05-11] MEDS: BENAZEPRIL HCL 20 MG TAB PO SCH (08:59)
[2018-05-11] MEDS: GABAPENTIN 300 MG CAP PO SCH ×2 (09:07→17:46)
[2018-05-11] MEDS: VALSARTAN/HCTZ 80-12.5MG TAB PO SCH (09:07)
[2018-05-11] MEDS: FAMOTIDINE 20 MG TAB PO SCH ×2 (09:07→22:07)
[2018-05-11] MEDS: VALSARTAN 80 MG TAB PO SCH (09:07)
[2018-05-11] MEDS: METHOCARBAMOL 750 MG TAB PO SCH ×3 (09:07→22:07)
[2018-05-11] MEDS: SENNOSIDES/DOCUSATE SODIUM TAB PO SCH ×2 (09:12→22:22)
[2018-05-11] MEDS ORDERED: NS IV SCH (14:32)
[2018-05-11] MEDS ORDERED: CEFEPIME HCL IV SCH (14:32)
--- NOTE | 2018-05-11 14:35 | PCMIDPN ---
Assessment/Plan: Post op infection following re-do for loosing HWR, who underwent removal HWR L1 -S1, T12-S2 fusion with instrumentation, L2, L3 laminectomy, Right L2/3 facetectomy and L3 transforaminal decompression 04/28/18. Significant drainage post op developed and underwent washout 05/08/18 for concern for infection. Klebsiella growing from more superficial cx. --hold off on PICC Line to await culture maturity --continue cefepime for now, no PsA so can reduce dose cefepime --hopeful for Cipro or Levoflox --sensi should be available tomorrow and will hope to dc tomorrow, I will round in AM meds cefepime 2gm IV q8h, #2 Microbiology 04/28/18 14:10 Back - Cx: gram stain neg; CX NGTD 04/28/18 14:10 Back - CX: Gram stain neg; Cx NGTD 05/08/18 12:40 Back - 2 deep cx : 1 showed GNR on gram stain: Cx NGTD 05/08/18 12:40 Back - 2 superficial: gram stain neg; 1/2 Klebsiella Subjective: feeling well, no c/o Objective: Vital Signs Temp Pulse Resp BP Pulse Ox 36.9 C 84 16 128/92 H 96 05/11/18 08:00 05/11/18 08:00 05/11/18 08:00 05/11/18 09:07 05/11/18 08:00 Microbiology 05/08/18 12:40 Gram Stain - Final Back - Eswab 05/08/18 12:40 Gram Stain - Final Back - Eswab 05/08/18 12:40 Gram Stain - Final Back - Eswab 05/08/18 12:40 Gram Stain - Final Back - Eswab Laboratory Results 05/11/18 04:32 05/09/18 04:24 05/10/18 05/11/18 05/12/18 05:59 05:59 05:59 Intake Total 3200 750 520 Output Total 2540 550 Balance 660 200 520 C-Reactive Protein 60.7 mg/L (<10.0) H 05/09/18 04:24 - Physical Exam General Appearance: alert, no apparent distress Respiratory: No accessory muscle use Neck: supple Back: other (incision wound vac in place, ) Skin: warm/dry, No diaphoresis, No rash Neuro/Psych: alert, normal mood/affect, oriented x 3 - Time Spent With Patient Time Spent with Patient: greater than 35 minutes (reviewed pathogenesis of post op infection, potential abx options) Time Spent with Patient: Greater than 35 minutes spent on this patients care, greater than 50% of time spent counseling, educating, and coordinating care regarding the above mentioned plan. ICD10 Worksheet Patient Problems: Problems Problem Status Onset Post op infection Acute - ICD10 Problem Qualifiers (1) Post op infection Qualifiers: Encounter type: subsequent encounter Postoperative infection type: unspecified type Qualified Code(s): T81.40XD - Infection following a procedure , unspecified, subsequent encounter
[2018-05-11] MEDS: NS IV SCH ×2 (15:15→22:06)
[2018-05-11] MEDS: CEFEPIME HCL IV SCH ×2 (15:15→22:06)
[2018-05-11] MEDS ORDERED: TEMAZEPAM 15 MG CAP PO PRN (20:11)
[2018-05-11] MEDS: ATORVASTATIN CALCIUM 40 MG TAB PO SCH (22:07)
[2018-05-12 05:11] LABS: PLATELET COUNT 667 10^3/uL (150-400)
[2018-05-12] MEDS: LEVOTHYROXINE 50 MCG TAB PO SCH (05:47)
[2018-05-12 07:33] VITALS: BP 110/77
--- NOTE | 2018-05-12 08:04 | GPROG ---
I saw and evaluated Nilo today on my afternoon rounds. Overall, he is doing quite well. His lab alejandro ues appear to be trending in the right direction. He has been evaluated by Infectious Disease, and a t this point, his microbiology has grown Klebsiella oxytoca. I am unfamiliar with this, but I have d iscussed with Infectious Disease, and from their report, it sounds like, we will have a final plan to lindsay with regard to long-term antibiotic administration. At this point, we will await sensitivitie s on the culture. We will be in touch with Infectious Disease, as well as the patient tomorrow regar ding possible discharge. The patient is neurologically intact. Drains are in place. We will discon tinue the drains tomorrow. /[id number]/MODL
[2018-05-12] MEDS: NS IV SCH (08:14)
[2018-05-12] MEDS: GABAPENTIN 300 MG CAP PO SCH (08:14)
[2018-05-12] MEDS: CEFEPIME HCL IV SCH (08:14)
[2018-05-12] MEDS: SENNOSIDES/DOCUSATE SODIUM TAB PO SCH (08:15)
[2018-05-12] MEDS: METHOCARBAMOL 750 MG TAB PO SCH (08:15)
[2018-05-12] MEDS: BENAZEPRIL HCL 20 MG TAB PO SCH (08:15)
[2018-05-12] MEDS: VALSARTAN/HCTZ 80-12.5MG TAB PO SCH (08:15)
[2018-05-12] MEDS: FAMOTIDINE 20 MG TAB PO SCH (08:15)
[2018-05-12] MEDS: VALSARTAN 80 MG TAB PO SCH (08:15)
--- NOTE | 2018-05-12 10:40 | PCMIDPN ---
Assessment/Plan: Post op infection following re-do for loosing HWR, who underwent removal HWR L1 -S1, T12-S2 fusion with instrumentation, L2, L3 laminectomy, Right L2/3 facetectomy and L3 transforaminal decompression 04/28/18. Significant drainage post op developed and underwent washout 05/08/18 for concern for infection. Klebsiella growing from more superficial cx. --reviewed risks and benefits of IV Rocephin verses Levaquin. Patient chooses Levaquin, reviewed risk factors and included in patient's printout. Sent prescription of Levaquin to patient's pharmacy via outpatient EMR. --asked lab to re-review Gram stain from deep sample as cultures remain negative. --will continue to monitor cultures both from original redo and from washout. meds cefepime 1gm IV q8h, #3 Microbiology 04/28/18 14:10 Back - Cx: gram stain neg; CX NGTD 04/28/18 14:10 Back - CX: Gram stain neg; Cx NGTD 05/08/18 12:40 Back - 2 deep cx : 1 showed GNR on gram stain: Cx NGTD 05/08/18 12:40 Back - 2 superficial: gram stain neg; 1/2 Klebsiella only resistant to ampicillin Subjective: No new complaints. Lying comfortably in his bed. Has been off his usual medications of Methotrexate, Plaquenil, and Hydrocodone Bitart/acetaminophen for the past 4 weeks. Pt grew up in [place]. Pt will follow-up in the clinic on at 13:[address] Alarcon at 13:00. IHue, am scribing for, and in the presence of, Rubia Huggins MD. Rubia Brower MD, personally performed the services described in this documentation, as scribed by Hue Jackson in my presence, and it is both accurate and complete. Objective: Vital Signs Temp Pulse Resp BP Pulse Ox 36.7 C 78 16 110/77 96 05/12/18 07:29 05/12/18 07:29 05/12/18 07:29 05/12/18 08:15 05/12/18 07:29 Microbiology 05/08/18 12:40 Gram Stain - Final Back - Eswab 05/08/18 12:40 Gram Stain - Final Back - Eswab 05/08/18 12:40 Gram Stain - Final Back - Eswab 05/08/18 12:40 Gram Stain - Final Back - Eswab Laboratory Results 05/12/18 04:26 05/09/18 04:24 05/11/18 05/12/18 05/13/18 05:59 05:59 05:59 Intake Total 750 1770 Output Total 550 2050 Balance 200 -280 C-Reactive Protein 60.7 mg/L (<10.0) H 05/09/18 04:24 - Physical Exam General Appearance: alert, no apparent distress Respiratory: accessory muscle use, No respiratory distress Back: other (wound vac over thoracic incision ), No spine tenderness Skin: normal color, warm/dry, other (prior drain sites healing well with no surrounding erythema or drainage), No rash Neuro/Psych: oriented x 3 - Line/s PIV Lines: other (R-forearm ), No drainage, No erythema - Time Spent With Patient Time Spent with Patient: greater than 35 minutes Time Spent with Patient: Greater than 35 minutes spent on this patients care, greater than 50% of time spent counseling, educating, and coordinating care regarding the above mentioned plan. ICD10 Worksheet Patient Problems: Problems Problem Status Onset Post op infection Acute - ICD10 Problem Qualifiers (1) Post op infection Qualifiers: Encounter type: subsequent encounter Postoperative infection type: unspecified type Qualified Code(s): T81.40XD - Infection following a procedure , unspecified, subsequent encounter
--- NOTE | 2018-05-12 10:51 | GPROG ---
DATE OF SERVICE: 05/12/2018 I saw and evaluated the patient this morning. Overall, he is doing quite well. We have discontinued his drain and his incisional VAC is clean, dry, intact, maintaining suction. He has no sensory, motor, or vascular deficits, and physical exam is otherwise as expected. PLAN: The patient is discharged just awaiting Infectious Disease. At this point, we are hoping to g daniel him some oral antibiotics to go home with, and he will see me again in a week's time. /[id number]/MODL
--- NOTE | 2018-05-12 11:01 | GDS ---
HOSPITAL COURSE: The patient was readmitted to the hospital with the diagnosis of a draining incisio n, and on Tuesday, May 08, 2018, he underwent an irrigation and debridement, at which time some thi n colored liquid was noted to be in contact with the instrumentation, as well as superficially. This was sent for culture and was allowed to grow throughout the patient's hospital stay. Deep drains an d negative pressure incisional VAC were placed on the incision, as well as some topical antibiotics. Patient progressed well with physical therapy, saw Infectious Disease, and was subsequently cleared for discharge with followup with an antibiotic plan per Infectious Disease. I would like to see the patient back in a week's time. He knows that it is possible that he would re quire another washout in the future. I would like him to maintain spinal caution, that is no bending , lifting, or twisting for the next 6 weeks. We will also maintain his TLSO to be worn whenever he i s up and around. He also knows to call me directly if he has any further drainage, fevers, chills, o r malaise. Patient has a pre-surgical booklet, as well as my cell phone if he has any further questi ons or concerns in the meantime. Of note, his cultures are consistent with a Klebsiella species. Of note, the patient was also instructed that he can remove that negative pressure incisional VAC when he gets home or when it stops working, and he can apply a bandage to that. He should send me a note if there is any increased drainage on it over the next few days. /[id number]/MODL
[2018-05-12] MEDS: HYDROCODONE/APAP 5/325 TAB PO PRN (14:47)
--- NOTE | 2018-05-12 14:58 | ASMTLACE ---
LACE Length of stay for Answers: 4-6 days current admission Acuity / Level of Answers: Yes Care: Did the patient have an inpatient admission? Comorbidities - select Answers: Opioid dependence all that apply / Chronic pain Other Notes: HTN; Hypothyroid # of Emergency department Answers: 1-2 visits in the last 6 months Score: 13 Date Signed: 05/12/2018 02:57 PM Electronically Signed By:MARY Ayers
--- NOTE | 2018-05-12 14:59 | ASMTCMCOM ---
CM Note CM Note Notes: Pt medically stable for d/c with family support. Pt to follow up with MD and ID. No Cm d/c needs identified. Date Signed: 05/12/2018 02:58 PM Electronically Signed By:MARY Ayers
== END 2018-05-12 15:20 | disposition home or self-care (01) | DRG 863 ==
LOC: FSGY 08:26 → OBSVTOIN 10:22 → F3N 15:30
PROVIDERS: ADMIT Orthopaedic Surgery Orthopaedic Surgery of the Spine; ATTEND Orthopaedic Surgery Orthopaedic Surgery of the Spine
PROC: 0J9700Z Drainage of Back Subcutaneous Tissue and Fascia with Drainage Device, Open Approach (ICD-10-PCS; principal; 2018-05-08 12:15)
DX: T81.42XA Infection following a procedure, deep incisional surgical site, initial encounter (principal); B96.1 Klebsiella pneumoniae [K. pneumoniae] as the cause of diseases classified elsewhere; Z98.1 Arthrodesis status; I10 Essential (primary) hypertension; M06.9 Rheumatoid arthritis, unspecified; G47.30 Sleep apnea, unspecified; E03.9 Hypothyroidism, unspecified
CPT/HCPCS: 86141-90; 97116-GP; 97161-GP; 97165-GO; 97530-GP; J0690; J0692; J2250; J2405; J2704; J2765; J3010; J3370

== ENCOUNTER → 2018-05-16 | Day surgery (SDC) | payer OTHER | END | disposition home or self-care (01) | LOC: FIMAGING 12:34 | PROVIDERS: ATTEND Radiology Diagnostic Radiology | DX: T81.42XD Infection following a procedure, deep incisional surgical site, subsequent encounter (principal) | CPT/HCPCS: C1751 ==

== ENCOUNTER 2018-08-31 06:00 | Inpatient (IN) | payer OTHER ==
[~2018-08-31 06:00] MED LIST changes: -IOPAMIDOL (ISOVUE-M 200) 20 ML VIAL ONE; -LIDOCAINE 1% 300 MG/30 ML SDV ONE; +ROPIVACAINE 0.2% 80 MG, EPINEPHrine 0.2 MG in SYRINGE 0 ML IU ONE; +TRANEXAMIC ACID 3,000 MG in NS (SYRINGE) 50 ML IRR ONE
[2018-08-31] MEDS ORDERED: ACETAMINOPHEN 325 MG TAB PO ONE (06:10)
[2018-08-31] MEDS ORDERED: ceFAZolin 2 GM/DEXTROSE 100 ML IV ONE (06:10)
[2018-08-31] MEDS ORDERED: FAMOTIDINE 20 MG TAB PO ONE (06:10)
[2018-08-31] MEDS ORDERED: DEXAMETHASONE 4 MG/ML VIAL IVP ONE (06:10)
[2018-08-31] MEDS ORDERED: LIDOCAINE 1% 2 ML INJ ID PRN (06:15)
[2018-08-31] MEDS ORDERED: LR 1,000 ML IV ONE (06:15)
[2018-08-31] MEDS ORDERED: TRANEXAMIC ACID 3,000 MG/50 ML BAG IRR ONE (06:38)
--- NOTE | 2018-08-31 07:11 | PDHPUP ---
History & Physical Update H&P update statement: This history and physical update is based on an assessment of the patient which was completed after admission or registration (within 24 hours), but prior to the surgery/procedure. H&P update: H&P reviewed & patient examined, changes noted (multiple crapes and wounds on RLE) H&P changes: ,multiple wounds on RLE, case cancelled
[2018-09-07] MEDS ORDERED: TRANEXAMIC ACID 3,000 MG in NS (SYRINGE) 50 ML IRR ONE (06:00)
[2018-09-07] MEDS ORDERED: ROPIVACAINE 0.2% 80 MG, EPINEPHrine 0.2 MG in SYRINGE 0 ML IU ONE (06:00)
[2018-09-07] MEDS ORDERED: ceFAZolin 2 GM/DEXTROSE 100 ML IV ONE (08:30)
[2018-09-07] MEDS ORDERED: DEXAMETHASONE 4 MG/ML VIAL IVP ONE (08:30)
[2018-09-07] MEDS ORDERED: FAMOTIDINE 20 MG TAB PO ONE (08:30)
[2018-09-07] MEDS ORDERED: ACETAMINOPHEN 325 MG TAB PO ONE (08:30)
[2018-09-07] MEDS ORDERED: TRANEXAMIC ACID 3,000 MG/50 ML BAG IRR ONE (09:13)
[2018-09-07] MEDS ORDERED: LR 1,000 ML IV ONE (09:19)
[2018-09-07] MEDS ORDERED: PROPOFOL/EMULSION 500 MG/50 ML BOTTLE IV ONE ×2 (11:23→12:06)
[2018-09-07] MEDS ORDERED: fentaNYL 100 MCG/2 ML INJ ONE (11:23)
[2018-09-07] MEDS ORDERED: DEXAMETHASONE 4 MG/ML VIAL ONE (11:57)
[2018-09-07] MEDS ORDERED: ONDANSETRON 4 MG/2 ML VIAL ONE (11:57)
--- NOTE | 2018-09-07 12:08 | PDANEPAE ---
ANE History of Present Illness DJD R Hip s/f R ANNA ANE Past Medical History - Cardiovascular History Hx Hypertension: Yes Hx Arrhythmias: No Hx Chest Pain: No Hx Coronary Artery / Peripheral Vascular Disease: No Hx CHF / Valvular Disease: No Hx Palpitations: No - Pulmonary History Hx COPD: No Hx Asthma/Reactive Airway Disease: No Hx Recent Upper Respiratory Infection: No Hx Oxygen in Use at Home: No Hx Sleep Apnea: Yes Sleep Apnea Screening Result - Last Documented: Positive Pulmonary History Comment: SLEEP APNEA W/CPAP - Neurologic History Hx Cerebrovascular Accident: No Hx Seizures: No Hx Dementia: No Neurologic History Comment: 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 PLATINUM - Chronic Pain History Chronic Pain: Yes (BACK PAIN, LEG) - Surgical History Prior Surgeries: THORACIC/LUMBAR REDO FUSION. I&D OF SPINE FOR INFECTION. L KNEE SCOPE X3. L TKA. L SHOULDER SCOPE. CERVICAL SURG IMPINGEMENT. DISCECTOMY LUMBAR. SEPTOPLASTY. UMB HERNIA. SPINAL FUSION LUMBAR. ING HERNIA ANE Review of Systems Review of Systems: - Exercise capacity METS (RN): 4 METS ANE Patient History - Allergies Allergies/Adverse Reactions: No Known Allergies Allergy (Verified 05/08/18 08:26) - Home Medications Home medications: home medication list seen and reviewed Home Medications: Benazepril HCl [Lotensin (*)] 20 mg PO DAILY 04/05/18 [Last Taken 2 Weeks Ago ~ 08/24/18] Levothyroxine [Synthroid 50 mcg (*)] 50 mcg PO DAILY 04/05/18 [Last Taken 06:30] Ascorbic Acid [Vitamin C 500 mg (*)] 500 mg PO DAILY 04/11/18 [Last Taken 3 Weeks Ago ~08/17/18] Atorvastatin Calcium 80 mg PO HS 04/11/18 [Last Taken 09/06/18] Cholecalciferol (Vitamin D3) [Vitamin D3] 5,000 unit PO DAILY 04/11/18 [Last Taken 3 Weeks Ago ~08/17/18] Folic Acid [Folic Acid 1 MG (*)] 1 mg PO DAILY 04/11/18 [Last Taken 3 Weeks Ago ~08/17/18] Valsartan/Hydrochlorothiazide [Valsartan-Hctz 160-12.5 mg Tab] 1 tab PO DAILY [Last Taken 09/06/18] Herbals/Supplements -Info Only 1 ea PO DAILY 05/08/18 [Last Taken 3 Weeks Ago ~ 08/17/18] Aspirin [Aspirin 325 mg (*)] 325 mg PO HS 08/18/18 [Last Taken 3 Weeks Ago ~] Doxycycline Hyclate [Vibramycin 100 MG (*)] 100 mg PO BID 08/18/18 [Last Taken 09/07/18 06:30] Gabapentin [Neurontin 300 MG (*)] 300 mg PO BID 08/18/18 [Last Taken 09/07/18 06 :30] Methotrexate Sodium [Rheumatrex 2.5 mg (RX)] 20 mg PO TH 08/18/18 [Last Taken 3 Weeks Ago ~08/17/18] Niacin ER [Niaspan 500 mg (*)] 750 mg PO HS 08/18/18 [Last Taken 3 Weeks Ago ~] Testosterone IM [Testosterone 100mg/ml IM inj (*)] 0.75 ml IM TH 08/18/18 [Last Taken 3 Weeks Ago ~08/17/18] - NPO status NPO Since - Liquids (Date): 09/07/18 NPO Since - Liquids (Time): 00:00 NPO Since - Solids (Date): 09/06/18 NPO Since - Solids (Time): 21:45 - Anes Hx Anes Hx: no prior problems - Smoking Hx Smoking Status: Never smoked - Alcohol Use Alcohol Use: Rarely - Family Anes Hx Family Anes Hx: none Family Hx Anesthesia Complications: NEG ANE Labs/Vital Signs - Labs - CBC WBC: reviewed and okay - Vital Signs Blood Pressure: 150/97 Heart Rate: 71 Respiratory Rate: 18 O2 Sat (%): 94 Height: 180.34 cm Weight: 95.254 kg ANE Physical Exam - Airway Neck exam: FROM Mallampati Score: Class 2 Mouth exam: normal dental/mouth exam - Pulmonary Pulmonary: no respiratory distress - Cardiovascular Cardiovascular: regular rate and rhythym - ASA Status ASA Status: II ANE Anesthesia Plan Anesthesia Plan: spinal (spinal if Ez and no cloudy fluid or excessively tender area located. Change to GA if needed)
[2018-09-07] MEDS ORDERED: PHENYLEPHRINE HCL 100 MCG/ML SYR IVP PRN (12:13)
[2018-09-07] MEDS ORDERED: NALOXONE HCL 0.4 MG/ML INJ IVP PRN (12:13)
[2018-09-07] MEDS ORDERED: DEXAMETHASONE 4 MG/ML VIAL IVP PRN (12:13)
[2018-09-07] MEDS ORDERED: oxyCODONE IR 5 MG TAB PO PRN (12:13)
[2018-09-07] MEDS ORDERED: PROMETHAZINE HCL 25 MG/ML INJ IVP PRN ×2 (12:13→12:45)
[2018-09-07] MEDS ORDERED: LR 500 ML IV PRN (12:13)
[2018-09-07] MEDS ORDERED: MEPERIDINE 25 MG/0.5 ML AMP IVP PRN (12:13)
[2018-09-07] MEDS ORDERED: ALBUTEROL 3 ML DEYVIAL IH PRN (12:13)
[2018-09-07] MEDS ORDERED: ONDANSETRON 4 MG/2 ML VIAL IVP PRN ×2 (12:13→12:45)
[2018-09-07] MEDS ORDERED: METOCLOPRAMIDE 10 MG/2 ML VIAL IVP PRN ×2 (12:13→12:45)
[2018-09-07] MEDS ORDERED: fentaNYL 100 MCG/2 ML INJ IVP PRN (12:13)
[2018-09-07] MEDS ORDERED: ONDANSETRON DISINTEGRATING 4 MG TAB PO PRN (12:45)
[2018-09-07] MEDS ORDERED: POLYETHYLENE GLYCOL 3350 17 GM PKT PO PRN (12:45)
[2018-09-07] MEDS ORDERED: MAGNESIUM HYDROXIDE 30 ML UDCUP PO PRN (12:45)
[2018-09-07] MEDS ORDERED: TEMAZEPAM 15 MG CAP PO PRN (12:45)
[2018-09-07] MEDS ORDERED: PROMETHAZINE HCL 25 MG SUPPR PR PRN (12:45)
[2018-09-07] MEDS ORDERED: diphenhydrAMINE 25 MG CAP PO PRN (12:45)
[2018-09-07] MEDS ORDERED: BISACODYL 10 MG SUPP PR PRN (12:45)
[2018-09-07] MEDS ORDERED: LACTULOSE 20 GM/30 ML UDCUP PO PRN (12:45)
[2018-09-07] MEDS ORDERED: DIPHENOXYLATE/ATROPINE LOMOTIL 1 TAB PO PRN (12:45)
--- NOTE | 2018-09-07 12:45 | POSTOPPROG ---
Post Op Note Date of Operation: 09/07/18 Surgeon: Bernadine Heard Physician Vice President: Veena FAN Anesthesiologist: Dr. Hussain Aquino Anesthesia: Spinal Pre-op Diagnosis: right hip OA Post-op Diagnosis: same Indication: right hip pain Procedure: RTHA Findings: severe OA of right hip Inf/Abcess present in the surg proc area at time of surgery?: No EBL: 50-100
[2018-09-07] MEDS ORDERED: LR 1,000 ML IV SCH (13:00)
--- NOTE | 2018-09-07 15:08 | SOAPPROG ---
SOAP Progress Note Assessment/Plan: Assessment: 58 year old male s/p right anterior ANNA - procedure earlier today Doing well, left leg/hip is numb at this time Plan: Begin d/c planning - likely going to home. Will have support of his girlfriend Continue oral pain medication - [place], Tylenol, celebrex, flexeril Continue VTE ppx - aspirin 81 mg BID, SCDs, CONCHIS hose Continue PT efforts - WBAT, anterior total hip precautions Subjective: Patient states he is doing well, there is no pain. States the left leg is numb at this time. He plans to go home tomorrow and will have the support of his girlfriend. He denies SOB, CP, fever, chills, nausea. Objective: Vital Signs Temp Pulse Resp BP Pulse Ox 36.6 C 60 16 124/77 H 95 09/07/18 14:45 09/07/18 14:45 09/07/18 14:45 09/07/18 14:45 09/07/18 14:45 09/06/18 09/07/18 09/08/18 05:59 05:59 05:59 Intake Total 940 Output Total 20 Balance 920 Patient resting in bed, no acute distress. RLE: Wound dressings clean, dry and intact. Edema noted along the anterolateral aspect of the right hip. No erythema , purulent drainage or signs of infection. Lower leg compartments are soft and nontender. Patient can actively DF and PF right foot and great toe against resistance. Grossly NVI distally. ICD10 Worksheet Patient Problems: Problems Problem Status Onset Unilateral primary osteoarthritis, right hip Acute Post op infection Acute
[2018-09-07] MEDS: HYDROCODONE/APAP 5/325 TAB PO PRN ×3 (16:39→23:41)
[2018-09-07] MEDS: ceFAZolin 2 GM/DEXTROSE 100 ML IV SCH (17:40)
[2018-09-07] MEDS ORDERED: ACETAMINOPHEN 325 MG TAB PO SCH (18:45)
[2018-09-07] MEDS: CYCLOBENZAPRINE 10 MG TAB PO PRN (18:49)
--- NOTE | 2018-09-07 19:12 | PDMN ---
Medical Necessity Medical necessity: [facility] S560 Hip Arthroplasty, A-2 day: 58 yo s/p R ANNA, [facility] IP only
[2018-09-07] MEDS: DOXYCYCLINE HYCLATE 100 MG CAP/TAB PO SCH (20:09)
[2018-09-07] MEDS: GABAPENTIN 300 MG CAP PO SCH (20:09)
[2018-09-07] MEDS: FAMOTIDINE 20 MG TAB PO SCH (20:10)
[2018-09-07] MEDS: SENNOSIDES/DOCUSATE SODIUM TAB PO SCH (20:10)
[2018-09-07] MEDS: ASPIRIN 81 MG CHEWABLE TAB PO SCH (20:10)
[2018-09-07] MEDS ORDERED: ATORVASTATIN CALCIUM 40 MG TAB PO SCH (21:00)
[2018-09-07] MEDS ORDERED: NIACIN 750 MG PO SCH (21:00)
[2018-09-07] MEDS ORDERED: NIACIN ER 500 MG TAB.ER PO SCH (21:00)
[2018-09-08] MEDS: ceFAZolin 2 GM/DEXTROSE 100 ML IV SCH (02:06)
[2018-09-08] MEDS: CYCLOBENZAPRINE 10 MG TAB PO PRN (06:09)
[2018-09-08 07:38] VITALS: BP 146/85
[2018-09-08] MEDS: SENNOSIDES/DOCUSATE SODIUM TAB PO SCH (08:38)
[2018-09-08] MEDS: FAMOTIDINE 20 MG TAB PO SCH (08:39)
[2018-09-08] MEDS: HYDROCODONE/APAP 5/325 TAB PO PRN ×2 (08:39→11:34)
[2018-09-08] MEDS: DOXYCYCLINE HYCLATE 100 MG CAP/TAB PO SCH (08:39)
[2018-09-08] MEDS: GABAPENTIN 300 MG CAP PO SCH (08:39)
[2018-09-08] MEDS: ASPIRIN 81 MG CHEWABLE TAB PO SCH (08:39)
[2018-09-08] MEDS ORDERED: LEVOTHYROXINE 50 MCG TAB PO SCH (09:00)
[2018-09-08] MEDS ORDERED: VALSARTAN/HCTZ 80-12.5MG TAB PO SCH (09:00)
[2018-09-08] MEDS ORDERED: BENAZEPRIL HCL 20 MG TAB PO SCH (09:00)
[2018-09-08] MEDS ORDERED: VALSARTAN 80 MG TAB PO SCH (09:00)
--- NOTE | 2018-09-08 09:07 | SOAPPROG ---
SOAP Progress Note Assessment/Plan: Assessment: 58 year old male s/p right ANNA, anterior approach - POD1 Doing better than expected Plan: Continue d/c planning - going home. Will have support of his girlfriend Continue oral pain medication - [place], Tylenol, celebrex, flexeril Continue VTE ppx - aspirin 81 mg BID x 4 weeks, SCDs in hospital, CONCHIS hose x 2 weeks Continue PT efforts - WBAT, anterior total hip precautions Subjective: Patient states he is doing well, there is some pain in the right hip but it is tolerable. He feels well enough to go home today. His girlfriend will be helping take care of him. He denies SOB, CP, fever, chills. Objective: Vital Signs Temp Pulse Resp BP Pulse Ox 37.4 C 95 16 146/85 H 94 09/08/18 07:37 09/08/18 07:37 09/08/18 07:37 09/08/18 08:38 09/08/18 07:37 Laboratory Results 09/08/18 05:31 09/07/18 09/08/18 09/09/18 05:59 05:59 05:59 Intake Total 3045 Output Total 2820 300 Balance 225 -300 Patient resting in bed, no acute distress. RLE: Wound dressings clean, dry and intact. Soft tissue edema noted along the lateral aspect of the hip. Possible early developing seroma or hematoma. Lower leg compartments are soft and nontender. Patient can actively DF and PF right foot and great toe against resistance. Grossly NVI distally. ICD10 Worksheet Patient Problems: Problems Problem Status Onset Unilateral primary osteoarthritis, right hip Acute Post op infection Acute
--- NOTE | 2018-09-08 09:11 | PDDCSUM ---
Discharge Summary Discharge Summary: ADMISSION DIAGNOSIS: Right hip severe degenerative arthritis DISCHARGE DIAGNOSIS: Right hip severe degenerative arthritis OPERATION PERFORMED: September 07, 2018 Right total hip arthroplasty, anterior approach POSTOPERATIVE COMPLICATIONS: None CONDITION ON DISCHARGE: Improved HPI: The patient is a 58 year old male who has end-stage arthritis of his right hip. Clinical and radiographic features are consistent with this. Patient has failed attempts at conservative management, therefore, recommended operative right total hip replacement. DESCRIPTION OF HOSPITAL COURSE: The patient was admitted to the hospital on the morning of surgery and underwent a right total hip arthroplasty, anterior approach. Postoperatively, patient was treated with multimodal DVT prophylaxis, including aspirin, SCDs, CONCHIS hose. Patient was seen by PT and made good progress with ambulation and stairs. On the first post-operative day the patient s H&H was 14.7/46.1. Patient was able to void spontaneously. At the time of discharge, patient was afebrile, wound was clean and dry. Patient is walking with a walker. DISPOSITION: The patient is discharged home with the support of his girlfriend and may have outpatient PT in approximately 3 weeks. Patient may progress to full weightbearing on the right lower extremity as tolerated. CONCHIS stockings for 2 weeks during the daytime. Aspirin 81 mg BID for 4 weeks. Patient has prescriptions for [place], Celebrex, flexeril for pain control and muscle spasms. He is to monitor Tylenol use due to taking [place]. The patient will be seen by Dr. Perez office in approximately 3 weeks. If there are any problems, patient is to call Dr. Perez office.
--- NOTE | 2018-09-08 10:26 | ASMTLACE ---
LACE Length of stay for Answers: 2 days current admission Acuity / Level of Answers: Yes Care: Did the patient have an inpatient admission? Comorbidities - select Answers: Opioid dependence all that apply / Chronic pain Other Notes: HTN; Hypothyroid # of Emergency department Answers: 1-2 visits in the last 6 months Score: 11 Date Signed: 09/08/2018 10:25 AM Electronically Signed By:MARY Ayers
--- NOTE | 2018-09-08 13:04 | GOP ---
[f rep st] OPERATIVE REPORT DATE OF OPERATION: 09/07/2018 SURGEON: Candelario Heard MD SMASH HAND: [place] ANESTHESIA: Spinal. PREOPERATIVE DIAGNOSIS: Right hip osteoarthritis and avascular necrosis. POSTOPERATIVE DIAGNOSIS: Right hip osteoarthritis and avascular necrosis. PROCEDURE PERFORMED: Right total hip arthroplasty with x-ray. FINDINGS: ESTIMATED BLOOD LOSS: 200 mL. INDICATIONS: The patient has progressively worsening arthritis of the hip which has failed medical m anagement. The patient understands the treatment options including continued non-operative care and has selected surgical intervention. The patient has decided to undergo total hip arthroplasty via th e direct anterior approach, understanding the risks of the procedure including, but not limited to, n eurovascular injury, infection, persistent pain, component wear and loosening, deep venous thrombosis , pulmonary embolism, limb length inequality, hip instability (including dislocation), and intra-oper ative fractures. DESCRIPTION OF PROCEDURE: After proper identification of the patient including verification and akash ing the surgical site, the patient was brought to the operating room and placed in the supine positio n. All bony prominences were well padded. Anesthesia was induced without complication and intraveno us prophylactic antibiotics were administered prior to skin incision. The operative leg was placed in the Trumpf Arch table extension and the well leg in a Yellofins leg h older. The patient was prepped and draped in the usual sterile fashion. The C-arm was draped for in tra-operative fluoroscopy to check acetabular position, femoral component position including leg saul th and femoral offset. Attention was then drawn to surgical exposure of the hip. An incision was made with a #10 Bard Kermit r blade starting 3 cm lateral and 3 cm distal to the anterior superior iliac spine measuring 8-10 cm and coursing distally toward the greater trochanter. The skin and subcutaneous tissues were divided sharply down to the fascia robyn. The fascia robyn was incised in line with the skin incision exposing the underlying tensor fascia robyn muscle. The muscle was bluntly elevated from the fascia and the f irst extracapsular Cobra retractor was placed laterally at the junction of the superior femoral neck and greater trochanter. The lateral femoral circumflex vessels were identified, cauterized, and divi ded with the Aquamantys bipolar cautery. The deep investing fascia of the TFL was divided to allow p nadine mobilization of the muscle preventing damage during the retraction. The reflected head of the rectus femoris muscle was elevated off the anterior hip capsule and a medial Cobra retractor was plac ed just proximal to the lesser trochanter. The anterior capsulotomy was made sharply from the superolateral acetabulum to the saddle junction of the superior femoral neck and greater trochanter, then coursing inferomedial towards the lesser troc hanter. The retractors were then placed in the intracapsular position for femoral neck osteotomy. C orresponding to pre-operative templating, the osteotomy was made with the oscillating saw carefully p rotecting the greater trochanter and soft tissues. The femoral head was removed from the acetabulum with a corkscrew and confirmed to be severely arthritic with exposed bone, deformity and osteophytes. Similar findings were confirmed in the acetabulum. The Arch table extension was then placed in 40 degrees external rotation. Attention was then drawn to the acetabular preparation. After placement of the anterior and posterio r Cobra retractors outside the labrum and intracapsular, the circumferential labrum was removed sharp ly. The foveal contents were then removed and hemostasis obtained with cautery. The first reamer selected was sized using the removed femoral head. Reaming began with medialization and then commenced in 2 mm increments at 45 degrees of abduction and 15 degrees of anteversion using fluoroscopic navigation. Reaming ceased 1 mm less than the definitive acetabular component and jermaine esponded to the pre-operative templating. The final acetabular component was inserted using fluorosc opy to achieve proper orientation yielding excellent purchase and stability in the acetabulum. The f inal acetabular liner was then placed and its seating confirmed. Attention was then turned to the femur. The Arch table extension was placed in extension and adducti on, delivering the osteotomized femoral neck into the wound. A 2-pronged femoral elevator was placed at the calcar and another at the tip of the greater trochanter. The posterolateral capsule was rele ased with cautery allowing mobilization of the femur lateral and anterior for preparation. The exter nal rotators were visualized and preserved. A curette and rongeur were used to open the starting poi nt for broaching. Serial broaching started with the #0 broach and ended with the broach that exhibit ed excellent fit in the proximal femur. A change in pitch during mallet strikes was accompanied by t he inability to advance the broach any further. The trial reduction was performed and fluoroscopic n avigation was utilized to check limb length. Adjustments were made to equalize limb length according ly. After the final trials were accepted they were removed and the wound was copiously lavaged. The femo ral component was seated to the same depth as the final broach and the femoral head was impacted onto the clean trunnion. The hip was then reduced for the final time and once more fluoroscopy was used to check that limb length equality was achieved. The wound was irrigated and closed in layers, the fascia robyn with 2-0 Quill, the subcutaneous tissue with 2-0 Quill, and the skin with Dermabond. Sterile dressings were applied. Final sharps and spon ge counts were accurate. The patient was then transferred to a hospital bed and brought to the [facility] room in stable condition. IMPLANTS: Accolade 2, size 7, a 127 acetabular component, a Trident II 58 mm. Liner is a Trident X3 36 mm. Head is a Biolox Delta 36 mm +0. /[id number]/[id number]
== END 2018-09-08 11:41 | disposition home or self-care (01) | DRG 470 ==
LOC: F3N 06:00 → UNDOADMIN 06:00 → F3N 09-07 09:04
PROVIDERS: ADMIT Orthopaedic Surgery; ATTEND Orthopaedic Surgery
PROC: 0SR904Z Replacement of Right Hip Joint with Ceramic on Polyethylene Synthetic Substitute, Open Approach (ICD-10-PCS; principal; 2018-09-07 11:00)
DX: M16.11 Unilateral primary osteoarthritis, right hip (principal); Z98.1 Arthrodesis status; E03.9 Hypothyroidism, unspecified
CPT/HCPCS: 97116-GP; 97161-GP; J0171; J0690; J1100; J2270; J2405; J2704; J2795; J3010